=== PATIENT | female | born 1975 | race Asian ===

== ENCOUNTER → 2023-05-11 | Outpatient (CLI) | payer OTHER, SELFPAY ==
--- OUTSIDE RECORDS SUMMARY | 2023-05-11 08:36 | XMS RPT_ITS | CCD ---
Author Name Unknown Address [address] [place] [address] Organization [facility] Care Team Providers Care Associate Professor Of Chemistry Name Role Phone Barb Wise LPN Unavailable Unavaila Barb Gruber Unavailable Medications Completed/Discontinued Medications Medication Drug Class(es) Dates Sig (Normalized) Sig (Original) ALBUTEROL SULFATE (1 source) beta2-Adrenergic Agonist Start: 03-22-2016 take 2 puff(s) by inhalation every four hours as needed PROAIR HFA 108 (90 Base) MCG/ACT AERS Inh two puffs every 4 hrs as needed ALBUTEROL SULFATE [id number] Barb Brunner cholecalciferol 37353 unt oral capsule (1 source) Vitamin D Start: 03-22-2016 VITAMIN D3 82541 UNIT CAPS One cap twice a week CHOLECALCIFEROL [id number] Barb Brunner dextromethorphan / guaiFENesin (1 source) Uncompetitive E-jfsfex-C-aspartat e Receptor Antagonist, Sigma-1 Agonist Start: 03-22-2016 take 10 mL by mouth every six hours ROBITUSSIN COLD COUGH+ CHEST 10-100 MG/5ML LIQD 5-10ml four times daily as needed for cough DEXTROMETHORPHAN- AIFENESIN [id number] Barb Brunner EPINEPHRINE (1 source) alpha-Adrenergic Agonist, beta-Adrenergic Agonist, Catecholamine Start: 03-22-2016 EPIPEN 2-EARL 0.3 MG/0.3ML SOAJ as needed for allergic reaction EPINEPHRINE [id number] Barb Brunner FLUTICASONE PROPIONATE (1 source) Corticosteroid Start: 03-22-2016 take 1-2 spray(s) nasal route once daily FLONASE 50 MCG/ACT SUSP 1-2 sprays in each nostril once daily FLUTICASONE PROPIONATE [id number] Barb Brunner FLUTICASONE-SALMETERO L (1 source) Corticosteroid, beta2-Adrenergic Agonist Start: 03-22-2016 take 2 puff(s) by mouth twice daily ADVAIR HFA 45-21 MCG/ACT AERO Inh two puffs twice daily, use with spacer. Rinse mouth out after use FLUTICASONE-SALMETE ROL [id number] Barb Brunner hydrocortisone 25 mg/ml topical cream (1 source) Corticosteroid Start: 03-22-2016 HYDROCORTISONE 2.5 % CREA One application to affected area twice daily HYDROCORTISONE [id number] Barb Brunner hydrOXYzine hydrochloride 25 mg oral tablet (1 source) Antihistamine Start: 03-22-2016 HYDROXYZINE HCL 25 MG TABS One tab every 6 hrs as needed for itching / rash HYDROXYZINE HCL 15400210266 Barb Brunner KETOTIFEN FUMARATE (1 source) Histamine-1 Receptor Inhibitor Start: 03-22-2016 ZADITOR 0.025 % SOLN One drop to each eye 2-3 times daily as needed KETOTIFEN FUMARATE 84954211776 Barb Brunner levocetirizine (1 source) Histamine-1 Receptor Antagonist Start: 03-22-2016 LEVOCETIRIZINE DIHYDROCHLORIDE TABS One tab once daily as needed LEVOCETIRIZINE DIHYDROCHLORIDE TABS [id number] Barb Brunner MOMETASONE FUROATE (1 source) Corticosteroid Start: 03-22-2016 take 2 spray(s) nasal route once daily NASONEX 50 MCG/ACT SUSP Two sprays in each nostril once daily MOMETASONE FUROATE 85482138604 Barb Brunner montelukast 10 mg oral tablet (1 source) Leukotriene Receptor Antagonist Start: 03-22-2016 SINGULAIR 10 MG TABS One tab daily at bedtime MONTELUKAST SODIUM [id number] Barb Brunner Drug Treatment Unknown - unknown (1 source) No information available. traZODone hydrochloride 50 mg oral tablet (1 source) Serotonin Reuptake Inhibitor Start: 03-22-2016 TRAZODONE HCL 50 MG TABS One tab at bedtime as needed for sedation TRAZODONE HCL [id number] Barb Brunner TRIAMCINOLONE ACETONIDE (1 source) Corticosteroid Start: 03-22-2016 KENALOG 0.147 MG/GM AERS Apply one application to affected area twice daily for 7 days TRIAMCINOLONE ACETONIDE [id number] Barb Brunner Problems Problem Classification Problem Date Documented Da te Episodic/Chronic Unclassified (2 sources) No current problems or disability 08-03-2016 Results Test Name Value Interpretation Reference Range Facil ity Plan of Treatment Date Care Activity Detail Author Start: 09-02-2016 End: 09-02-2016 Appointment Appointment Pulmonary Medicine juliocesar Pascual Work Phone: Clinical Note 10-24-2020 Note Date & Type Note Facility 10-24-2020 Note Patient Outreach ([facility]) MARSHALL TUBBS ([id number]) 1975 F Date Time Provider Department 10/24/20 HERB FINK During your visit today, we recorded the following information about you: Allergies As of Date: 10/24/2020 Noted Allergy Reaction BETA BLOCKERS (BETA-BLOCKERS (BET*12/31/2013 15 - Contraindication-Medical Manuel* Comments: Avoid use of beta blockers as patient is on allergy immunotherapy CATS 09/28/2013 5 - Intolerance Comments: Itching eyes, sinus SEASONAL ALLERGIES 09/28/2013 9 - Itching Comments: Sinus, itching eyes Date Reviewed: 01/26/2018 Reviewed by: Massiel Arizmendi - Fully Assessed Visit Diagnosis:Encounter for screening mammogram for breast cancer [Z12.31] Order(s):[facility] SCREENING [[id number]] Order #: [id number] FUTURE Prescriptions as of 10/27/2020 - escitalopram oxalate (LEXAPRO) 10 mg tablet Take 1 tablet by mouth once daily. - ketotifen fumarate (ZADITOR) 0.025 % (0.035 %) ophthalmic solution INSTILL ONE(1) DROP IN EACH EYE TWO TO THREE TIMES DAILY NEEDED - albuterol HFA (VENTOLIN HFA) 90 mcg/actuation inhaler Inhale 2 (TWO) puffs as instructed every FOUR hours as needed. - montelukast (SINGULAIR) 10 mg tablet Take 1 tablet by mouth daily at bedtime. - fluticasone (FLONASE) 50 mcg/actuation nasal spray Use 1-2 Sprays in each nostril once daily. - fluticasone (FLOVENT HFA) 110 mcg/actuation inhaler Inhale 1 Puff as instructed twice daily. via spacer - cetirizine (ZYRTEC) 10 mg tablet Take 1 tablet by mouth once daily as needed. - hydrOXYzine pamoate (VISTARIL) 25 mg capsule TAKE 2 CAPSULES THREE TIMES DAILY NEEDED - EPINEPHrine (EPIPEN 2-EARL) 0.3 mg/0.3 mL auto-injector Inject 0.3 mL intramuscularly as needed (for allergic reaction.Seek emergent medical care immediately after use. Disp: 1 2-pack w/athletic trainer). - LACTOBACILLUS ACIDOPHILUS (PROBIOTIC ORAL) Take by mouth. Problem List As Of Date 10/24/2020 Noted Resolved Asthma, moderate persistent [J45.40] 11/09/2012 Pre-diabetes [R73.03] 11/09/2012 Allergic rhinitis due to fungal spores [J30.89] 11/23/2012 Knee pain [M25.569] 09/21/2013 Thrush, oral [B37.0] 09/21/2013 Insomnia [G47.00] 05/29/2014 Vitamin D deficiency [E55.9] 03/22/2016 Anxiety [F41.9] 09/10/2016 Chronic seasonal allergic rhinitis due to polle*03/03/2017 Allergic rhinitis due to dust mite [J30.89] 03/03/2017 Allergic rhinitis due to cats [J30.81] 09/29/2017 Encounter Status:Closed by DORINDA, PRODUSER on 10/27/20 [facility] Summary Purpose Family History No Family History Records FoundNo Family History Records Found Advance Directives No Advanced Directives Records FoundNo Advanced Directives Records Found Additional Source Comments INFORMATION SOURCE (unrecogn ized section and content) DATE CREATED AUTHOR AUTHOR'S ORVILLE HENLEY 05/18/2021 [facility] FOR RECORDS PERTAINING TO PATIENTS WHO ARE OR HAVE BEEN ENROLLED IN A CHEMICAL DEPENDENCY/SUBSTANCEABUSE PROGRAM, SOME INFORMATION MAY BE OMITTED. This clinical summary was aggregated from multiple sources. Caution should be exercised in using it in the provision of clinical care. This summary normalizes information from multiple sources, and as a consequence, information in this document may materially change the coding, format and clinical context of patient data. In addition, data may be omitted in some cases. CLINICAL DECISIONS SHOULD BE BASED ON THE PRIMARY CLINICAL RECORDS. [facility]. provides no warranty or guarantee of the accuracy or completeness of information in this document.
[2023-05-11 12:15] LABS: Thyroid Stim Hormone (TSH) 2.29 uIU/mL (0.358-3.74)
[2023-05-11 13:23] LABS: Hemoglobin A1c 5.5 % (3.8-5.6)
== END | disposition home or self-care (01) ==
LOC: BIMLAB 08:12
PROVIDERS: PCP Nurse Practitioner; Referring Provider Nurse Practitioner; Visit Provider Nurse Practitioner
DX: Z00.00 Encounter for general adult medical examination without abnormal findings (principal)
CPT/HCPCS: 36415; 83036; 84443

== ENCOUNTER → 2025-03-21 | Outpatient (CLI) | payer OTHER, SELFPAY ==
[2025-03-21 11:19] LABS: Hematocrit 42.3 % (37-47); Hemoglobin 14.2 g/dL (12.0-15.0); Immature Granulocytes Count 0.010 X10^3/uL (0.0-0.0); Mean Corp Hgb Conc 33.6 g/dL (32-36); Mean Corpuscular Volume 89.2 fL (81-99); Mean Platelet Vol. 9.3 fl (6.2-12.0); NRBC Flagged by Analyzer 0 % (0-5); Platelet Count 252 K/mm3 (150-450); RBC Distribution Width CV 13.4 % (11.6-14.6); RBC Distribution Width SD 44.1 fl (35.1-43.9); Red Blood Count 4.74 M/mm3 (4.2-5.4); White Blood Count 4.9 K/mm3 (4.4-11.0)
[2025-03-21 12:06] LABS: AST(SGOT) 14 U/L (<=31); Alanine Aminotransfer ALT/SGPT 10 U/L (<=34); Albumin, Serum 4.1 g/dL (3.5-5.0); Alkaline Phosphatase 69 U/L (35-104); Anion Gap 11 (5-15); BUN 11 mg/dL (4-19); BUN/Creat Ratio 17.9 RATIO (10-20); Calcium,Total 8.7 mg/dL (7.6-11.0); Carbon Dioxide 24.3 mmol/L (21.0-32.0); Chloride 104 mmol/L (98-108); Cholesterol 206 mg/dL (<=200); Globulin 2.5 g/dL (2.2-4.2); Glucose 98 mg/dL (70-99); Low Density Lipoprotein Calc. 123 mg/dL; Potassium 3.7 mmol/L (3.3-5.1); Triglycerides 207 mg/dL; Very Low Density Lipoprotein 41 mg/dL (5-40); Vitamin D,25 Hydroxy 77.6 ng/mL (30-100); cholesterol:hdl ratio screen 4.47
== END | disposition home or self-care (01) ==
LOC: LAB 08:28
PROVIDERS: PCP Internal Medicine; Referring Provider Internal Medicine; Visit Provider Internal Medicine
DX: J45.40 Moderate persistent asthma, uncomplicated (principal); J30.9 Allergic rhinitis, unspecified; R53.83 Other fatigue; E78.2 Mixed hyperlipidemia
CPT/HCPCS: 36415; 80053; 80061; 82306; 85025